=== PATIENT | male | born 1940 | race Caucasian/White ===

== ENCOUNTER 2016-10-31 13:22 | Day surgery (SDC) | payer MEDICARE, OTHER ==
[~2016-10-31] VITALS: Ht 177.8 cm; Wt 176.0 kg
[2016-10-31 14:11] LABS: POTASSIUM 4.2 mmol/L (3.4-5.0)
[2016-10-31 14:13] LABS: INR 1.2 (0.8-3.0); PROTHROMBIN TIME 12.9 SECONDS (9.7-12.8)
[2016-10-31 14:30] VITALS: BP 145/78; PULSE 61; TEMP 97.6
[2016-10-31] MEDS ORDERED: COZAAR100 MG PO (14:31)
[2016-10-31] MEDS ORDERED: K-DUR20 MEQ PO (14:31)
[2016-10-31] MEDS ORDERED: ELIQUIS 5MG PO (14:32)
[2016-10-31] MEDS ORDERED: INSPRA25 MG PO (14:33)
[2016-10-31] MEDS ORDERED: LEVEMIR FLEX100 U/ML SQ (14:34)
[2016-10-31] MEDS ORDERED: LEVEMIR100 U/ML SQ (14:35)
[2016-10-31] MEDS ORDERED: LIPITOR 10MG10 MG PO (14:36)
[2016-10-31] MEDS ORDERED: IMODIUM 2MG CAPS2 MG PO (14:36)
[2016-10-31] MEDS ORDERED: FLONASE SENSIM9.9 ML NS (14:38)
[2016-10-31] MEDS ORDERED: NITROSTAT0.4 MG/TAB SL (14:39)
[2016-10-31] MEDS ORDERED: LASIX 40MG TABL40 MG PO (14:40)
[2016-10-31] MEDS ORDERED: BENADRYL25 M2 PO (14:40)
[2016-10-31] MEDS ORDERED: ASPIRIN E.C. 8181 MG PO (14:41)
[2016-10-31] MEDS ORDERED: BETAPACE160 MG PO (14:42)
[2016-10-31] MEDS ORDERED: NEURONTIN600 MG/TAB PO (14:44)
[2016-10-31] MEDS ORDERED: ATIVAN 1MG T1 MG/TAB PO (14:44)
[2016-10-31] MEDS ORDERED: NOVOLOG FLEX100 U/ML SQ (14:45)
[2016-10-31 14:46] LABS: THYROID STIMULATING HORMONE 2.24 uIU/mL (0.465-4.680)
[2016-10-31] MEDS ORDERED: ZOLOFT 100MG100 MG PO (14:46)
[2016-10-31] MEDS ORDERED: UROXATRAL10 M1 PO (14:46)
[2016-10-31 15:15] VITALS: BP 129/71; PULSE 54
[2016-10-31 15:30] VITALS: BP 133/72; PULSE 55
[2016-10-31 15:45] VITALS: BP 146/76; PULSE 54
[2016-10-31 16:00] VITALS: BP 128/78; PULSE 57; TEMP 98.2
[2016-10-31 16:15] VITALS: BP 143/80; PULSE 56
== END 2016-10-31 17:00 | disposition home or self-care (01) ==
LOC: EUO 13:22 → COL.CAR 13:45 → EUO 17:00
PROVIDERS: Internal Medicine Cardiovascular Disease
DX: I48.0 Paroxysmal atrial fibrillation (principal); I08.1 Rheumatic disorders of both mitral and tricuspid valves; I25.119 Atherosclerotic heart disease of native coronary artery with unspecified angina pectoris; I10 Essential (primary) hypertension; K21.9 Gastro-esophageal reflux disease without esophagitis; I25.2 Old myocardial infarction; G47.33 Obstructive sleep apnea (adult) (pediatric); Z80.0 Family history of malignant neoplasm of digestive organs; M19.90 Unspecified osteoarthritis, unspecified site; D64.9 Anemia, unspecified; Z79.01 Long term (current) use of anticoagulants; Z79.4 Long term (current) use of insulin
CPT/HCPCS: J2704; J7030